=== PATIENT | female | born 1980 | race Caucasian/White ===

== ENCOUNTER 2024-05-16 09:41 | Day surgery (SDC) | payer OTHER ==
[~2024-05-16] VITALS: Ht 160 cm; Wt 66.7 kg
[2024-05-16] MEDS ORDERED: FERRIC SUBSULFATE 20%-22%-8 ML PASTE ONE (10:56)
[2024-05-16] MEDS ORDERED: POTASSIUM IODIDE/IODINE 5% 14 ML BTL ONE (10:56)
[2024-05-16] MEDS ORDERED: DEXAMETHASONE 4 MG/ML VIAL ONE (11:19)
[2024-05-16] MEDS ORDERED: ONDANSETRON 4 MG/2 ML VIAL ONE (11:19)
[2024-05-16] MEDS ORDERED: fentaNYL citrate 0.05 MG/ML VIAL ONE (11:19)
[2024-05-16] MEDS ORDERED: SEVOFLURANE 250 ML BTL INH ONE (11:20)
[2024-05-16] MEDS ORDERED: PROPOFOL 200 MG/20 ML VIAL IV ONE (11:20)
[2024-05-16] MEDS ORDERED: MIDAZOLAM 2 MG/2 ML VIAL ONE (11:20)
== END 2024-05-16 13:50 | disposition home or self-care (01) ==
LOC: MDS 09:41 → MMU 10:07 → MDS 13:50
PROVIDERS: ATTEND Obstetrics & Gynecology
DX: N87.1 Moderate cervical dysplasia (principal); Z98.890 Other specified postprocedural states
CPT/HCPCS: 57522; J1100; J2250; J2405; J2704; J3010